=== PATIENT | female | born 1955 | race Native Hawaiian/Other Pacific Islander ===

== ENCOUNTER 2019-04-23 10:36 | Outpatient (CLI) | payer OTHER, MEDICARE | END 2019-04-23 20:18 | disposition home or self-care (01) | LOC: CT 10:36 | DX: R39.89 Other symptoms and signs involving the genitourinary system (principal); R31.9 Hematuria, unspecified; R30.0 Dysuria; N39.0 Urinary tract infection, site not specified ==

== ENCOUNTER 2022-01-24 13:04 | Outpatient (CLI) | payer OTHER, MEDICARE | END 2022-01-24 21:41 | disposition home or self-care (01) | LOC: RAD 13:04 | PROVIDERS: ATTEND Internal Medicine | DX: Z13.820 Encounter for screening for osteoporosis (principal); N95.8 Other specified menopausal and perimenopausal disorders ==

== ENCOUNTER 2022-06-25 10:16 | Outpatient (CLI) | payer OTHER, MEDICARE | END 2022-06-25 20:42 | disposition home or self-care (01) | LOC: RAD 10:16 | PROVIDERS: ATTEND Internal Medicine | DX: R05.3 Chronic cough (principal) ==

== ENCOUNTER 2023-03-21 14:03 | Outpatient (CLI) | payer OTHER, MEDICARE | END 2023-03-21 19:23 | disposition home or self-care (01) | LOC: RAD 14:03 | PROVIDERS: ATTEND Internal Medicine | DX: M79.641 Pain in right hand (principal); M25.572 Pain in left ankle and joints of left foot; M79.672 Pain in left foot ==

== ENCOUNTER 2023-04-04 13:45 | Outpatient (CLI) | payer OTHER, MEDICARE | END 2023-04-04 19:24 | disposition home or self-care (01) | LOC: MRI 13:45 | PROVIDERS: ATTEND Internal Medicine | DX: M19.072 Primary osteoarthritis, left ankle and foot (principal); M79.672 Pain in left foot; M25.572 Pain in left ankle and joints of left foot ==